=== PATIENT | male | born 1990 | race Caucasian/White ===

== ENCOUNTER 2020-12-17 13:30 | Emergency (ER) | payer SELFPAY ==
[2020-12-17 13:40] VITALS: BP 126/80; PULSE 90; RESP 18; TEMP 37.2; O2SAT 100
--- NOTE | 2020-12-17 14:13 | ED.ABDPAIN ---
HPI - Abdominal Pain General Chief Complaint: Abdominal Pain Stated Complaint: Abdominal pain, Fever, and sweating Time Seen by Provider: 12/17/20 14:32 Source: patient and RN notes reviewed Mode of arrival: ambulatory Limitations: no limitations History of Present Illness HPI narrative: 30-year-old male presents with concern for bilateral lower back pain that started 1 week ago when he rolled over in bed. He also reports periumbilical abdominal discomfort he reports frequent bowel movements and possible history of IBS. He reports he drinks alcohol 3 times a week more than 3-5 drinks each instance. He reports he has a history of vaping for 5 years. Reports a poor diet. He reports 1 episode of low-grade temperature of 100.1 earlier this week, denies subsequent temperatures. He denies injury or trauma to the back or the abdomen. He denies vomiting, poor appetite, diarrhea. Reports frequent stools. Reports he has negative Covid test today MD elicited complaint: other (Back pain, abdominal discomfort) Related Data Allergies Allergy/AdvReac Type Severity Reaction Status Date / Time cefprozil Allergy Unknown as child Verified 12/17/20 13:55 Review of Systems Review of Systems: CONSTITUTIONAL: Denies malaise, chills, sweats, or fever. EYES: Denies visual changes, redness, or discharge. ENT: Denies rhinorrhea, congestion, sinus pain, otalgia or sore throat. CARDIOVASCULAR: Denies chest pain, palpitations, or edema. RESPIRATORY: Denies cough or dyspnea. GASTROINTESTINAL: Reports periumbilical abdominal discomfort. Denies poor appetite, nausea, vomiting, diarrhea, bloody, or mucous stools. GENITOURINARY: Denies dysuria or hematuria. SKIN: Denies bruising, redness MUSCULOSKELETAL: Reports bilateral low back pain. Denies joint pain or myalgia. NEUROLOGIC: Denies numbness, weakness, or headache. All systems reviewed & are unremarkable except as noted in HPI and below PMFSH Comments At time of signature, agree with nursing past medical, surgical, social and family history. There is no relevant family history pertinent to the presenting complaint Exam Narrative: GENERAL: Well-appearing, well-nourished, and in no acute distress. HEAD: Normocephalic, atraumatic. EYES: PERRLA, conjunctivae clear, and EOMI. ENT: Nares clear, turbinates pink, no rhinorrhea or epistaxis. Mucous membranes moist. Oropharynx without edema, erythema, or lesions. Tonsils not enlarged and without exudate. NECK: Supple. No lymphadenopathy CHEST: Speaks in full sentences. No respiratory distress. HEART: Regular rate and rhythm. ABDOMEN: Soft, flat, nondistended. No guarding, rebound tenderness, or rigid. No pulsatilla masses. Bowel sounds present in all four quadrants. No organomegaly. Negative Du?s sign. No periumbilical tenderness. No Supra public tenderness or distension. Good femoral pulses bilaterally. No hernia noted. No scars or surface trauma. No CVA tenderness MUSCULOSKELETAL: Normal range of motion and strength in all extremities; 5/5 strength with hip flexion and extension, dorsiflexion and extension, knee flexion and extension, plantar flexion and extension. No midline back tenderness to palpation. No paraspinal tenderness. Transfers from lying to sitting to standing. SKIN: Warm, dry, no rash. NEURO: Alert and oriented x3. PSYCH: Normal mood and affect Course Course Emergency Course: Lengthy discussion with patient regarding limiting denies diagnostic capability at [facility] and reasons for transfer to emergency department. Through shared decision making at this time, patient chooses to not go to the emergency room at this time. Patient understands reasons to go to the emergency room if symptoms worsen or do not improve. Patient is aware of diagnosis, understands and agrees to treatment plan. Anticipatory guidance given. Patient agrees to follow-up as directed and is aware of reasons to seek care at the emergency department. Portions of this record ma
== END 2020-12-17 14:50 | disposition home or self-care (01) ==
PROVIDERS: Emergency Provider Nurse Practitioner
DX: M54.5 Low back pain (principal); R10.9 Unspecified abdominal pain; F17.200 Nicotine dependence, unspecified, uncomplicated
CPT/HCPCS: 99213; G0463

== ENCOUNTER 2021-03-31 15:18 | Emergency (ER) | payer SELFPAY ==
[2021-03-31 15:30] VITALS: BP 135/87; PULSE 102; RESP 16; TEMP 37.1; O2SAT 100
--- NOTE | 2021-03-31 16:17 | PC.NURSE ---
NO CULTURE PER PROVIDER.
--- NOTE | 2021-03-31 16:41 | ED.MALEGU ---
HPI - Male Genitourinary General Chief complaint: Urogenital-Male Stated complaint: Urinary Problem Time Seen by Provider: 03/31/21 16:50 Source: RN notes reviewed and old records reviewed Mode of arrival: ambulatory Limitations: no limitations History of Present Illness HPI Narrative: 30 year old male who present to express care with complaints of pain to the tip and shaft of his penis feels like pressure with itching for the past 2-3 days. Patient denies any penile discharge or drainage, denies any testicular pain or any noted swelling.Patient denies any pain or burning with urination or any blood noted in urine, denies any flank or suprapubic pain or pressure. Patient reports some redness to penis from itching, denies any concern for STD exposure. MD Complaint: other (pain to tip and shaft of penis and itching) Onset (ago): day(s) (2-3 days) Related Data Allergies Allergy/AdvReac Type Severity Reaction Status Date / Time cefprozil Allergy Unknown as child Verified 12/17/20 13:55 Review of Systems Review of Systems: CONSTITUTIONAL: Denies fever, chills, or sweats. EYES: Denies visual changes, redness, or discharge. ENT: Denies rhinorrhea, congestion, sore throat, or otalgia. CARDIOVASCULAR: Denies chest pain, palpitations, or edema. RESPIRATORY: Denies cough or dyspnea. GASTROINTESTINAL: Denies abdominal pain, nausea, vomiting, or diarrhea. GENITOURINARY: Positive for dysuria,no hematuria.pain to tip and shaft of penis with itching. SKIN: Denies rash or itching. MUSCULOSKELETAL: Denies back pain, joint pain, or myalgia. NEUROLOGIC: Denies headache, numbness, or weakness. PSYCHIATRIC: Denies anxiety or depression. All systems reviewed & are unremarkable except as noted in HPI and below PMFSH Past Medical History Medical History (Updated 04/05/21 @ 12:20 by Betzy Wooten NP) Bipolar 1 disorder Fracture of left ankle OCD (obsessive compulsive disorder) Pneumonia 2006 Surgical History Surgical History (Updated 04/05/21 @ 12:11 by Betzy Wooten NP) H/O removal of cyst from leg Family History Family History (Updated 04/05/21 @ 11:55 by Betzy Wooten NP) Grandparent Heart disease Breast cancer Cancer of pancreas Hypertension Father Diabetes mellitus Social History Social History (Updated 04/05/21 @ 11:54 by Betzy Wooten NP) Tobacco type: e-cigarettes/vaping Alcohol intake: current Alcohol use details: social Substance use: never Living arrangements: with family Gender identity (if verbalized by the patient): Male Comments At time of signature, agree with nursing past medical, surgical, social and family history. There is no relevant family history pertinent to the presenting complaint Exam Narrative: GENERAL: Well-appearing, well-nourished, and in no acute distress. HEAD: Normocephalic, atraumatic. EYES: PERRLA and EOMI. ENT: Nares clear, no rhinorrhea or epistaxis. Mucous membranes moist.TM's normal with good light reflex, throat pink with no lesion exudates or tonsil swelling. NECK: Supple. no lymphadenopathy CHEST: Clear to auscultation. No respiratory distress.SAO2 100% on room air HEART: Regular rate and rhythm. No murmur heard. Normal peripheral pulses. ABDOMEN: Soft, nontender, nondistended, normal active bowel sounds. EXTREMITIES: Normal range of motion. No edema. SKIN: Warm, dry, no rash.redness to penis area from scratching no lesions or exudates, no testicle swelling or pain, pain to tip and shaft with no pain with urination. NEURO: No focal deficits. Alert and oriented x3. Course Vital Signs Vital signs: Vital Signs Temperature 37.1 C 03/31/21 15:30 Pulse Rate 102 H 03/31/21 15:30 Respiratory Rate 16 03/31/21 15:30 Blood Pressure 135/87 03/31/21 15:30 Pulse Oximetry 100 03/31/21 15:30 Temperature 37.1 C 03/31/21 15:30 Pulse Rate 102 H 03/31/21 15:30 Respiratory Rate 16 03/31/21 15:30 Blood Pressure 135/87 03/31/21 15
== END 2021-03-31 17:04 | disposition home or self-care (01) ==
PROVIDERS: Emergency Provider Registered Nurse
DX: N34.2 Other urethritis (principal); B37.42 Candidal balanitis; F17.200 Nicotine dependence, unspecified, uncomplicated
CPT/HCPCS: 81003; 99213; G0463

== ENCOUNTER 2023-12-28 11:12 | Emergency (ER) | payer SELFPAY ==
--- NOTE | ~2023-12-28 | XR_ITS ---
XR knee RT min 4V Ordering provider: Betzy Wooten NP History: . swelling,GEN.pain,NKI, unable to fully bend right knee . Comparison: None. FINDINGS: BONES: No acute fracture or dislocation. Bipartite patella is noted. JOINT SPACES: Normal. SOFT TISSUES: Normal. IMPRESSION: No acute osseous abnormality right knee. Reviewed, dictated and finalized at location A.
[2023-12-28 11:19] VITALS: BP 128/90; PULSE 102; RESP 16; TEMP 37.1; O2SAT 100
--- NOTE | 2023-12-28 11:43 | ED.GENADULT ---
HPI - General Adult General Chief complaint: Extremity Injury, Lower Stated complaint: right knee pain Time Seen by Provider: 12/28/23 11:32 Source: patient, RN notes reviewed and old records reviewed Mode of arrival: ambulatory Limitations: no limitations History of Present Illness HPI narrative: 33 year old male presents to [facility] care with complaints of right knee pain with no known injury to his knee. Patient reports that he has history of gout previously and wonders if he could have in his right knee. Patient reports that he does a lot of heavy lifting but he does not work putting pressure on his knees. Patient reports that ambulation if difficult and knee is tender to palpation with some swelling noted to his right knee. Patient reports that he has taken some Ibuprofen and also some left over muscle relaxers put not helping his pain. MD complaint: right knee pain Onset (ago): week(s) (2) Location: right (knee) and lower extremity Radiation: non-radiation Severity scale (1-10): 6 Quality: aching and constant Exacerbating factors: movement and other (ambulation) Treatments prior to arrival: other (Ibuprofen and muscle relaxer) Related Data Allergies Allergy/AdvReac Type Severity Reaction Status Date / Time cefprozil Allergy Unknown as child Verified 12/17/20 13:55 Review of Systems Review of Systems: CONSTITUTIONAL: Denies fever, chills, or sweats. EYES: Denies visual changes, redness, or discharge. ENT: Denies rhinorrhea, congestion, sore throat, or otalgia. CARDIOVASCULAR: Denies chest pain, palpitations, or edema. RESPIRATORY: Denies cough or dyspnea. GASTROINTESTINAL: Denies abdominal pain, nausea, vomiting, or diarrhea. GENITOURINARY: Denies dysuria or hematuria. SKIN: Denies rash or itching. MUSCULOSKELETAL: Denies back pain, positive for right knee pain with swelling or myalgia. NEUROLOGIC: Denies headache, numbness, or weakness. PSYCHIATRIC: Denies anxiety or depression. All systems reviewed & are unremarkable except as noted in HPI and below PMFSH Past Medical History Medical History (Updated 12/30/23 @ 08:30 by Betzy Wooten NP) Bipolar 1 disorder Fracture of left ankle Gout OCD (obsessive compulsive disorder) Pneumonia 2007 Surgical History Surgical History H/O removal of cyst from leg Family History Family History Grandparent Heart disease Breast cancer Cancer of pancreas Hypertension Father Diabetes mellitus Social History Social History Smoking packs per day: 1 Smoking cigarettes per day: 20.0 Years smoked: 12 Smoking pack-years: 12.00 Smoking status: Current every day smoker Tobacco type: e-cigarettes/vaping Additional smoking assessment comments: former cigarettes Alcohol intake: current Alcohol use details: social Substance use: never Living arrangements: with family Gender identity (if verbalized by the patient): Male Comments At time of signature, agree with nursing past medical, surgical, social and family history. There is no relevant family history pertinent to the presenting complaint Exam Narrative: GENERAL: Well-appearing, well-nourished, and in no acute distress. HEAD: Normocephalic, atraumatic. EYES: PERRLA and EOMI. ENT: Nares clear, no rhinorrhea or epistaxis. Mucous membranes moist. NECK: Supple.no lymphadenopathy CHEST: Clear to auscultation. No respiratory distress. SAO2 100% HEART: Regular rate and rhythm. No murmur heard. Normal peripheral pulses. ABDOMEN: Soft, nontender, nondistended, normal active bowel sounds. EXTREMITIES: Normal range of motion. No edema.Exception noted to pain and some swelling of his right knee with increased pain with bending and with ambulation, no reported injury concern could be gout,strong right pedal pulse to right foot denies any
== END 2023-12-28 12:39 | disposition home or self-care (01) ==
PROVIDERS: Emergency Provider Registered Nurse
DX: M25.561 Pain in right knee (principal); F17.290 Nicotine dependence, other tobacco product, uncomplicated; M10.9 Gout, unspecified
CPT/HCPCS: 73564; 99213; G0463